=== PATIENT | male | born 1975 | race Hispanic/Latino ===

== ENCOUNTER 2019-06-09 10:23 | Emergency (ER) | payer SELFPAY ==
[2019-06-09] MEDS ORDERED: Fluorescein Opthalmic Strip ONE (11:21)
[2019-06-09] MEDS ORDERED: Proparacaine 0.5% Opth 15 ML BOT ONE (11:21)
== END 2019-06-09 12:20 | disposition home or self-care (01) ==
LOC: ERS 10:23
DX: H02.844 Edema of left upper eyelid (principal)
CPT/HCPCS: 99283